=== PATIENT | female | born 2000 | race American Indian/Alaskan Native ===

== ENCOUNTER 2022-05-18 05:32 | Emergency (ER) | payer OTHER ==
--- NOTE | 2022-05-18 06:03 | XRay Report ---
CHEST 2 VIEWS INDICATION / CLINICAL INFORMATION: CHEST PAIN. COMPARISON: None available. FINDINGS: SUPPORT DEVICES: None. HEART / MEDIASTINUM: No significant abnormality. LUNGS / PLEURA: No significant pulmonary or pleural abnormality. No pneumothorax. ADDITIONAL FINDINGS: None IMPRESSION: 1. No acute chest process. Signer Name: Geovany Montoya MD Signed: 05/18/2022 5:59 AM Workstation Name: [email or web address]
[2022-05-18] MEDS ORDERED: KETOROLAC 10 MG TAB PO ONE (10:04)
--- NOTE | 2022-05-18 10:48 | Emergency Department Report ---
ED General Adult HPI - General Chief complaint: Chest Pain Stated complaint: CHEST PAIN/CHAR Time Seen by Provider: 05/18/22 09:56 Source: patient Mode of arrival: Ambulatory Limitations: No Limitations - Related Data Allergies Allergy/AdvReac Type Severity Reaction Status Date / Time No Known Allergies Allergy Verified 05/18/22 05:38 ED Review of Systems ROS: Stated complaint: CHEST PAIN/CHAR Other details as noted in HPI ED Past Medical Hx - Past Medical History Previous Medical History?: Yes - Surgical History Past Surgical History?: No - Social History Smoking Status: Unknown if ever smoked ED Physical Exam - General Limitations: No Limitations Critical care attestation.: If time is entered above; I have spent that time in minutes in the direct care of this critically ill patient, excluding procedure time. ED Disposition Clinical Impression: Chest wall pain Disposition: 01 HOME / SELF CARE / HOMELESS Is pt being admited?: No Does the pt Need Aspirin: No Condition: Stable Instructions: Nonspecific Chest Pain, Adult, Chest Wall Pain, [id number] Additional Instructions: Use Tylenol and ibuprofen as needed for pain. Follow-up with your primary care provider or cardiology if no improvement or worsening symptoms. Return to the emergency department as needed. Referrals: CHAN GARCIA MD [Staff Physician] - 3-5 Days JOHN JOY MD [Staff Physician] - 3-5 Days Forms: Work/School Release Form(ED) Time of Disposition: 10:48
[2022-05-18 11:13] VITALS: BP 113/85
--- NOTE | 2022-05-18 11:33 | Electrocardiograph Report ---
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
== END 2022-05-18 11:12 | disposition home or self-care (01) ==
LOC: ED 05:32
DX: R07.89 Other chest pain (principal); Z98.890 Other specified postprocedural states; Z79.899 Other long term (current) drug therapy
CPT/HCPCS: 71046; 93005; 99283